=== PATIENT | female | born 1965 | race Caucasian/White ===

== ENCOUNTER 2023-05-06 22:55 | Emergency (ER) | payer MEDICAID ==
[~2023-05-06] VITALS: Ht 162.6 cm; Wt 90.7 kg
[2023-05-06 23:00] VITALS: BP_SYST 140; PULSE 91; RESP 24; TEMP 97.6; O2SAT 94
[2023-05-06] MEDS ORDERED: KETOROLAC TROMETHAMINE 60 MG/2 ML VIAL IM ONE (23:45)
[2023-05-06] MEDS ORDERED: cefTRIAXone 1 GM in LIDOCAINE 1%, 20 ML MDV 2.1 ML IM ONE (23:45)
[2023-05-06] MEDS ORDERED: AUG875 PO (23:47)
[2023-05-06] MEDS ORDERED: MED4 PO (23:47)
[2023-05-06] MEDS ORDERED: ALBMDI INH (23:47)
[2023-05-06 23:58] VITALS: BP_SYST 142; PULSE 95; RESP 24; TEMP 97.6; O2SAT 95
== END 2023-05-06 23:58 | disposition home or self-care (01) ==
LOC: SED 22:55
DX: J20.9 Acute bronchitis, unspecified (principal); R05.9 Cough, unspecified; R09.81 Nasal congestion; R50.9 Fever, unspecified; J45.909 Unspecified asthma, uncomplicated; Z79.899 Other long term (current) drug therapy
CPT/HCPCS: 99284; 96372; J0696; J1885; J2001